=== PATIENT | female | born 1970 | race Caucasian/White ===

== ENCOUNTER 2024-12-30 07:30 | Day surgery (SDC) | payer OTHER ==
[~2024-12-30] VITALS: Ht 157.5 cm; Wt 59.1 kg
[~2024-12-30 07:30] MED LIST: BUPIVACAINE HCL 0.25% 50 ML MDV ONE; CEFAZOLIN SODIUM 2 GM/20 ML SYR IV SCH; CELEXA20 MG PO; GABAPENTIN300 MG PO; HYDROCODON-ACE1 EA14 PO; IBLOOD GLUCOSE TEST STRIP 1 EA TEST VI PRN; KETOROLAC TROMETHAMINE 30 MG/ML VIAL ONE; LACTATED RINGER'S 1,000 ML IV SCH; LAMICTAL100 MG PO; LIDOCAINE HCL 1% 5 ML SDV INJ ONE; MELOXICAM7.5 MG PO; WELLBUTRIN XL300 MG PO
[2024-12-30 07:55] VITALS: BP 96/55
[2024-12-30 08:09] VITALS: BP 105/65
[2024-12-30] MEDS ORDERED: MIDAZOLAM HCL 2 MG/2 ML VIAL ONE (09:48)
[2024-12-30] MEDS ORDERED: LIDOCAINE HCL 2% 5 ML SDV ONE ×2 (09:49→11:02)
[2024-12-30] MEDS ORDERED: Ropivacaine HCl 0.5% 30 ML VIAL ONE (09:49)
[2024-12-30] MEDS ORDERED: DEXAMETHASONE SOD PHOS 4 MG/ML VIAL ONE (09:49)
[2024-12-30] MEDS ORDERED: HYDROCODONE/ACETA 7.5/325 TAB PO PRN (11:00)
[2024-12-30] MEDS ORDERED: fentaNYL citrate 100 MCG/2 ML VIAL ONE (11:02)
[2024-12-30] MEDS ORDERED: propofoL 200 MG/20 ML VIAL ONE (11:02)
[2024-12-30] MEDS ORDERED: ondansetron HCL 4 MG/2 ML VIAL ONE (11:02)
[2024-12-30] MEDS ORDERED: HYDROmorphone HCL 1 MG/ML SYR IV PRN (11:45)
[2024-12-30] MEDS ORDERED: droPERidol 5 MG/2 ML VIAL IV PRN (11:45)
[2024-12-30] MEDS ORDERED: ondansetron HCL 4 MG/2 ML VIAL IV PRN (11:45)
[2024-12-30] MEDS ORDERED: NALOXONE HCL 0.4 MG SYR IV PRN (11:45)
[2024-12-30] MEDS ORDERED: IBLOOD GLUCOSE TEST STRIP 1 EA TEST VI PRN (11:45)
[2024-12-30] MEDS ORDERED: fentaNYL citrate 50 MCG/ML SDV IV PRN (11:45)
[2024-12-30] MEDS ORDERED: PROCHLORPERAZINE EDISYLATE 10 MG/2 ML VIAL IV PRN (11:45)
[2024-12-30] MEDS ORDERED: PHENYLEPHRINE HCL 10 MG/ML VIAL ONE (11:47)
[2024-12-30] MEDS ORDERED: DICLOFENAC SODI75 MG PO (12:00)
[2024-12-30] MEDS ORDERED: HYDROCODON-ACE1 EA11 PO (12:00)
[2024-12-30 12:32] VITALS: BP 114/75
[2024-12-30 13:24] VITALS: BP 115/69
[2024-12-30] MEDS ORDERED: SEVOFLURANE 250 ML BTL INH ONE (14:23)
[2024-12-30] MEDS ORDERED: DICLOFENAC SOD 75 MG TABEC PO SCH (21:00)
--- NOTE | 2024-12-31 04:50 | OR ---
[facility] [address], [place] [address] Signed DATE OF OPERATION: 12/30/2024 SURGEON: Tiki Wagner MD PREOPERATIVE DIAGNOSIS: Left shoulder labral tear. POSTOPERATIVE DIAGNOSIS: Left shoulder labral tear. PROCEDURE PERFORMED: Left shoulder arthroscopy with debridement of type 3 superior labral tear. INTERNATIONAL EXCHANGE COORDINATOR: Zoey Gray PA-C. Zoey was present and critical for all portions. ANESTHESIA: General. BLOOD LOSS: Minimal. BRIEF HISTORY: Joy is a 54-year-old female who injured her shoulder. Nonoperative treatment including injections and physical therapy were nonproductive in terms of relieving her pain. Risks, benefits, and alternatives of surgery were discussed with her and she elected to proceed. Once consent was obtained she was taken to the operating room. After adequate anesthesia, she was placed in a beach chair position. All downside pressure points were well padded. The left arm was prepped and draped in a standard sterile fashion. Shoulder was injected with 15 mL of 0.25% Marcaine with epinephrine as well as subacromial space. Standard posterior portal was made. The scope was introduced in the shoulder. ARTHROSCOPIC FINDINGS: Glenohumeral surfaces were intact. Biceps anchor was intact. Labrum showed a type 3 tear with extension down the biceps. The biceps insertion was actually stable. Undersurface of the rotator cuff showed some mild scuffing. No significant tear. The subacromial space was clear with no bursitis. DESCRIPTION OF OPERATION: Electronically Signed By: TIKI WAGNER MD 12/31/24 0450 PATIENT NAME: JOY SALES OPERATIVE REPORT DATE OF : 70 REPORT #: [id number] PHYSICIAN: TIKI WAGNER MD PCP: CARLIN VELÁZQUEZ PAC REPORT IS CONFIDENTIAL AND NOT TO BE RELEASED WITHOUT AUTHORIZATION [facility] [address] [place], [place] [address] Signed Standard anterior portal was made after localization using a spinal needle. Using the shaver we debrided the tear back to a stable rim anteriorly and posteriorly. We debrided and scuffed up the bottom side of the rotator cuff to just to stimulate some healing. The scope was withdrawn, placed in subacromial space a standard lateral portal was made. The superior cuff was intact. There was no significant bursitis or thickening. The undersurface of the acromion was type 1. Scope was then withdrawn. Portals were closed with 3-0 nylon and the shoulder was injected with 60 mg Toradol. The wounds were then dressed with Allevyn and OpSite. She was awakened, taken to recovery room in satisfactory condition. All sponge, needle, and instrument counts were correct. Tiki Wagner MD BA/NOAL /[id number] Copies: ~ Electronically Signed By: TIKI WAGNER MD 12/31/24 0450 PATIENT NAME: JOY SALES OPERATIVE REPORT DATE OF : 70 REPORT #: [id number] PHYSICIAN: TIKI WAGNER MD PCP: CARLIN VELÁZQUEZ PAC REPORT IS CONFIDENTIAL AND NOT TO BE RELEASED WITHOUT AUTHORIZATION
== END 2024-12-30 13:35 | disposition home or self-care (01) ==
LOC: DS 07:30
PROVIDERS: ATTEND Specialist
PROC: 0RBK4ZZ Excision of Left Shoulder Joint, Percutaneous Endoscopic Approach (ICD-10-PCS; principal; 2024-12-30 11:15)
DX: S43.432A Superior glenoid labrum lesion of left shoulder, initial encounter (principal); X58.XXXA Exposure to other specified factors, initial encounter; G89.18 Other acute postprocedural pain; Z79.899 Other long term (current) drug therapy
CPT/HCPCS: 01630; 64415; C1713; J0690; J1100; J1885; J2003; J2250; J2371; J2405; J2704; J2795; J3010; J7121